=== PATIENT | male | born 1990 | race Caucasian/White ===

== ENCOUNTER → 2018-12-03 | Outpatient (CLI) | payer OTHER | LOC: BMCIMAGING 15:51 | PROVIDERS: ATTEND Physician Assistant | DX: S62.354D Nondisplaced fracture of shaft of fourth metacarpal bone, right hand, subsequent encounter for fracture with routine healing (principal) ==

== ENCOUNTER → 2018-12-28 | Outpatient (CLI) | payer OTHER | LOC: BMCIMAGING 16:18 | PROVIDERS: ATTEND Orthopaedic Surgery Hand Surgery | DX: S62.354A Nondisplaced fracture of shaft of fourth metacarpal bone, right hand, initial encounter for closed fracture (principal) ==